=== PATIENT | male | born 2000 | race African-American/Black ===

== ENCOUNTER 2025-02-06 07:51 | Emergency (ER) | payer OTHER ==
[2025-02-06 08:04] VITALS: BP 133/83; PULSE 100; RESP 20; TEMP 98.4; BMI 27.3
[2025-02-06] MEDS ORDERED: diazePAM 2 MG TABLET ONE (08:21)
[2025-02-06] MEDS ORDERED: ACETAMINOPHEN 500 MG TABLET (FP) ONE (08:21)
[2025-02-06] MEDS ORDERED: IBUPROFEN 600 MG TABLET (FP) PO ONE (08:21)
[2025-02-06] MEDS: IBUPROFEN 600 MG TABLET (FP) PO ONE (08:26)
[2025-02-06] MEDS: ACETAMINOPHEN 500 MG TABLET (FP) PO ONE (08:29)
[2025-02-06] MEDS: diazePAM 2 MG TABLET PO ONE (08:29)
== END 2025-02-06 09:33 | disposition home or self-care (01) ==
LOC: JERFT 07:51
DX: M54.2 Cervicalgia (principal); R07.2 Precordial pain; M25.512 Pain in left shoulder; V47.5XXA Car driver injured in collision with fixed or stationary object in traffic accident, initial encounter; Y92.410 Unspecified street and highway as the place of occurrence of the external cause
CPT/HCPCS: 71046-TC-FY; 99283-25